=== PATIENT | female | born 1955 | race Caucasian/White ===

== ENCOUNTER → 2017-02-08 | Outpatient (CLI) | payer MEDICARE, BC ==
[~2017-02-08] MED LIST: ALPRAZOLAM0.5 MG PO; AMPYRA10 MG PO; AVONEX30 MCG/0.5 IM; B-121000 MCG PO; CITALOPRAM HBR40 MG PO; CO Q-10200 MG PO; COLACE 100MG C100 MG PO; CRESTOR5 MG PO; ELIQUIS 2.5 MG2.5 MG PO; FISH OIL 1,0001 EACH PO; GINGER ROOT550 MG PO; HAIR, SKIN & N1 EACH PO; LETROZOLE2.5 MG PO; LEVAQUIN750 MG PO; LEVOTHYROXINE88 MCG PO; LOSARTAN POTASS25 MG PO; MELOXICAM15 MG PO; METFORM PO; PERCOCET 5-3251 EACH PO; SM GLUCOSAMINE1 EACH PO; SYMMETREL 100100 MG PO; VITAMIN D33000 UNIT PO; ZANTAC 150 MG150 MG PO
[2017-02-08 11:24] LABS: HEMOGLOBIN 14.8 gm/dl (12.3-15.3); RED BLOOD COUNT 4.91 M/UL (4.00-5.10); WHITE BLOOD COUNT 7.2 K/UL (4.5-11.0)
[2017-02-08 11:38] LABS: BUN/CREATININE RATIO 24 (0-10)
== END ==
LOC: OPSV2 10:25
PROVIDERS: Orthopaedic Surgery
DX: Z01.812 Encounter for preprocedural laboratory examination (principal); M17.11 Unilateral primary osteoarthritis, right knee; N39.0 Urinary tract infection, site not specified
CPT/HCPCS: 36415; 80048; 81001; 83036; 85025; 87077; 87081; 87086; 87186; 93005

== ENCOUNTER → 2017-02-16 | Outpatient (CLI) | payer MEDICARE, BC | LOC: LAB 10:47 | DX: N39.0 Urinary tract infection, site not specified (principal) ==

== ENCOUNTER → 2017-02-22 | Outpatient (CLI) | payer MEDICARE, BC | LOC: LAB 09:16 | DX: Z01.812 Encounter for preprocedural laboratory examination (principal); Z17.1 Estrogen receptor negative status [ER-]; M17.11 Unilateral primary osteoarthritis, right knee | CPT/HCPCS: 36415; 80051; 82565; 84520; 86850; 86900; 86901; J7030 ==

== ENCOUNTER 2017-02-23 08:20 | Observation (INO) | payer MEDICARE, BC ==
[~2017-02-23] VITALS: Ht 167.6 cm; Wt 102.5 kg
[~2017-02-23 08:20] MED LIST changes: -COLACE 100MG C100 MG PO; -ELIQUIS 2.5 MG2.5 MG PO; -LEVAQUIN750 MG PO; -PERCOCET 5-3251 EACH PO
[2017-02-23] MEDS ORDERED: LEVAQUIN750 MG PO (09:04)
[2017-02-24 04:14] LABS: HEMOGLOBIN 12.4 gm/dl (12.3-15.3); RED BLOOD COUNT 4.16 M/UL (4.00-5.10)
[2017-02-24 04:29] LABS: BUN/CREATININE RATIO 20 (0-10)
[2017-02-24] MEDS ORDERED: ELIQUIS 2.5 MG2.5 MG PO (09:42)
[2017-02-24] MEDS ORDERED: PERCOCET 5-3251 EACH PO (09:44)
[2017-02-24] MEDS ORDERED: COLACE 100MG C100 MG PO (09:56)
[2017-02-25 06:54] LABS: RED BLOOD COUNT 4.09 M/UL (4.00-5.10); WHITE BLOOD COUNT 8.4 K/UL (4.5-11.0)
[2017-02-25 07:13] LABS: BUN/CREATININE RATIO 17 (0-10)
--- NOTE | 2017-02-25 22:29 | NUR ---
0910 - CALLED TO PT ROOM PER PATIENT; NOTED PATIENT TO STATE; "I'M GOING TO PASS OUT". PT ASSESSED; PT NOTED WITH INCREASED WORK OF BREATHING; O2 AT 2L/NC REPLACED ON PT; STATED "I FEEL SO NAUSEATED, AND FEEL LIKE PASSING OUT STILL". ASSISTED PT BACK TO BED WITH 2 ASSIST; ZANA CALLAWAY APRN AND DR. OSULLIVAN NOTIFIED; MEDICATION GIVEN FOR PAIN/NAUSEA (SEE MAR). VSS (SEE CHART). UPON TALKING TO PATIENT; IT WAS NOTED THAT SHE "WAS STRAINING TO HAVE A BOWEL MOVEMENT" APPROXIMATELY 5-10 MINUTES PRIOR TO EVENT. ALL OTHER ASSESSMENT WNL. NO S/S OF DISTRESS NOTED CURRENTLY. 0940 - REASSESSED PT. NOTED THAT NAUSEA WAS "BETTER", NO FURTHER C/O NOTED AT THIS TIME. WILL CONT TO REASSESS NEEDED.
== END 2017-02-25 18:33 | disposition home or self-care (01) ==
LOC: OR 08:20 → M/S 14:46 → OR 15:21 → M/S 02-25 18:33
PROVIDERS: Emergency Medicine; ADMIT Orthopaedic Surgery
PROC: 0SRC0L9 Replacement of Right Knee Joint with Medial Unicondylar Synthetic Substitute, Cemented, Open Approach (ICD-10-PCS; principal; 2017-02-23 11:45)
DX: M17.11 Unilateral primary osteoarthritis, right knee (principal); I10 Essential (primary) hypertension; E78.5 Hyperlipidemia, unspecified; R73.03 Prediabetes; K21.9 Gastro-esophageal reflux disease without esophagitis; I34.1 Nonrheumatic mitral (valve) prolapse; I05.0 Rheumatic mitral stenosis; E03.9 Hypothyroidism, unspecified; G89.29 Other chronic pain; Z90.710 Acquired absence of both cervix and uterus; Z85.3 Personal history of malignant neoplasm of breast; Z79.01 Long term (current) use of anticoagulants; Z79.891 Long term (current) use of opiate analgesic; Z79.899 Other long term (current) drug therapy; Z90.89 Acquired absence of other organs; Z87.440 Personal history of urinary (tract) infections; Z86.69 Personal history of other diseases of the nervous system and sense organs
CPT/HCPCS: 36415; 73560; 80048; 80053; 81001; 82962; 83735; 85027; 96365; 96366; 96375; 96376; 97110; 97116; 97530; C1713; C1776; G0378; J0690; J1040; J2250; J2270; J2550; J2795; J2930; J3010; J7030; J7120

== ENCOUNTER → 2021-05-09 | Outpatient (CLI) | payer MEDICARE, OTHER ==
[~2021-05-09] MED LIST changes: +COLACE 100MG C100 MG PO; +ELIQUIS 2.5 MG2.5 MG PO; +LEVAQUIN750 MG PO; +PERCOCET 5-3251 EACH PO
== END ==
LOC: EMI 12:59
DX: G35 Multiple sclerosis (principal)
CPT/HCPCS: 70551

== ENCOUNTER → 2022-02-21 | Outpatient (CLI) | payer MEDICARE, OTHER | LOC: RT 15:01 | DX: Z01.810 Encounter for preprocedural cardiovascular examination (principal); I10 Essential (primary) hypertension; R94.31 Abnormal electrocardiogram [ECG] [EKG] | CPT/HCPCS: 93005 ==

== ENCOUNTER 2022-03-28 16:43 | Emergency (ER) | payer MEDICARE, OTHER ==
[2022-03-28 17:18] LABS: HEMOGLOBIN 14.7 gm/dl (12.3-15.3); RED BLOOD COUNT 4.82 M/UL (4.00-5.10); WHITE BLOOD COUNT 8.5 K/UL (4.5-11.0)
[2022-03-28] MEDS ORDERED: FLOMAX0.4 MG PO (19:52)
[2022-03-28] MEDS ORDERED: AMOX TR-K CLV1 EAC4 PO (19:53)
== END 2022-03-28 21:40 | disposition home or self-care (01) ==
LOC: ER1 16:43
PROVIDERS: Emergency Medicine
DX: N13.2 Hydronephrosis with renal and ureteral calculous obstruction (principal); I10 Essential (primary) hypertension; Z88.0 Allergy status to penicillin
CPT/HCPCS: 76536; 80053; 81001; 82962; 83690; 85025; 96361; 96374; 96375; 99284; J1170; J2270; Q9967